=== PATIENT | male | born 1965 | race Caucasian/White ===

== ENCOUNTER 2020-08-09 11:25 | Emergency (ER) | payer OTHER ==
[2020-08-09 11:35] VITALS: TEMP 97.8; BMI 22.9
[2020-08-09] MEDS ORDERED: MECLIZINE HCL 25 MG TABLET (FP) PO ONE ×2 (12:33→14:50)
[2020-08-09] MEDS ORDERED: MECLIZINE HCL 25 MG TABLET (FP) ONE ×2 (12:36→14:57)
[2020-08-09 12:58] LABS: BASO % 0.6 % (0-2.0); EOS % 0.7 % (0-4.5); HEMATOCRIT 44.1 % (35.4-49); HEMOGLOBIN 14.9 GM/dL (11.7-16.9); LYMPH % 19.5 % (8-40); MCH 28.5 pg (25.7-33.7); MCHC 33.8 g/dl (32.0-35.9); MEAN CELL VOLUME 84.6 fl (80-96); MEAN PLT VOLUME 8.2 fl (7.5-11.1); MONO % 7.1 % (3.8-10.2); NEUT % 72.1 % (42.8-82.8); PLATELET COUNT 222 K/MM3 (134-434); RBC 5.21 M/mm3 (4.00-5.60); RDW 13.6 % (11.9-15.9); WHITE BLOOD COUNT 5.5 K/mm3 (4.0-10.0)
[2020-08-09] MEDS ORDERED: SODIUM CHLORIDE 0.9% 500 ML INFUS.BAG IV ONE (13:01)
[2020-08-09 13:28] LABS: POTASSIUM 4.2 mmol/L (3.5-5.1)
[2020-08-09 13:30] LABS: BLOOD UREA NITROGEN 13.1 mg/dL (7-18); CALCIUM 9.4 mg/dL (8.5-10.1)
[2020-08-09 16:28] VITALS: BP 127/78; PULSE 60
== END 2020-08-09 16:27 | disposition home or self-care (01) ==
LOC: JER 11:25
DX: R42 Dizziness and giddiness (principal)
CPT/HCPCS: 36415; 70450-TC; 80053; 85025; 93005; 93010; 99285-25